=== PATIENT | female | born 1985 | race Caucasian/White ===

== ENCOUNTER 2017-06-08 15:50 | Emergency (ER) | payer OTHER ==
[2017-06-08] MEDS ORDERED: IBUPROFEN 600 MG TABLET PO ONE (15:58)
--- NOTE | 2017-06-08 16:05 | ERNOTE ---
Upper Extremity HPI - General Extremities Pain Location: hand: right Time Seen by Provider: 06/08/17 15:52 Source: patient Exam Limitations: no limitations - Immun/Allergies/Home Medications Immunizations: IMMUNIZATION HX Immunizations Up to Date Yes History of Influenza Vaccine No Hx Pneumococcal Vaccination No Allergies/Adverse Reactions: Allergies Allergy/AdvReac Type Severity Reaction Status Date / Time No Known Allergies Allergy Verified 06/08/17 16:04 Home Medications: HOME MEDICATIONS ALPRAZolam [Xanax] 1 mg PO TID PRN 03/20/17 [Last Taken Unknown] - History of Present Illness Narrative: Patient was cleaning and opened a cabinet door and the fridge at the same time and got her right hand stuck between the two, denies any other injury, initial bleeding has stopped. Review of Systems - Review of Systems Constitutional: Absent: recent illness, weight loss ENT: Absent: nose congestion Respiratory: Absent: shortness of breath Cardiology: Absent: chest pain Gastrointestinal/Abdominal: Absent: nausea, vomiting, abdominal pain Genitourinary: Present: no symptoms reported Musculoskeletal: Present: See HPI Skin: Present: See HPI Neurological: Present: tingling - Patient's Past Medical History Patient History - Medical: Anxiety, Bipolar, Depression Patient History - Cardiac/Respiratory: No pertinent hx Patient History - Cancer: No Hx of Cancer Patient History - Surgical Procedures: T & A Patient History - Other: None - Family History Mother Family History - Medical: Other Brother Family History - Medical: Other Father Family History - Medical: - Social History Living Situations: home Abuse History: No History of abuse Psych History: Hx of Anxiety, Hx of Depression, Hx of Bipolar Disorder, Current tx/ever been on anti-depressants or anti-anxiety meds Smoking Status: Current every day smoker - few cigarettes Alcohol Use: none Drug Use: none - Immunizations Immunizations Up to Date: Yes Hx Pneumococcal Vaccination: No History of Influenza Vaccine: No Physical Exam - Physical Exam General Appearance: Present: wd/wn, alert, mild distress, anxious Respiratory: Present: no respiratory distress, normal breath sounds, lungs clear Cardiovascular/Chest: Present: regular rate, rhythm Extremity Exam: Present: normal except - - right hand: abrasion/lac over dorsum of hand over 4th and 5th metacarpal(middle part about 1cm slightly gaping), mild swelling and very tender, no skin defect on palmar side, decreased sensation 4th and 5th finger (but also over wrist! patient very anxious), no flexion and extension deficit, numbness resolved later Neurological Exam: Present: alert, oriented Skin Exam: Present: normal color, warm/dry ED Progress - Vital Signs Patient's Vital Signs:: I have reviewed the patient's vital signs. - X-Ray X-Ray #1 X-Ray: hand - no bony injury Interpretation: Reviewed by me Procedures Right Hand Anesthesia: 1% Lidocaine, Local Length of Repair/Wound (cm): 1 Wound's Depth/Shape: into subcutaneous, linear Wound Explored: clean, to base, no foreign body Wound Intervention: irrigated w/saline Distal NVT: neuro/vasc intact Suture Size/Type: 4-0, nylon Number of Sutures: 1 Layer Closure: Simple Departure Clinical Impression: Contusion of hand, right Qualifiers: Encounter type: initial encounter Qualified Code(s): S60.221A - Contusion of right hand, initial encounter Laceration of hand Qualifiers: Encounter type: initial encounter Foreign body presence: without foreign body Laterality: right Qualified Code(s): S61.411A - Laceration without foreign body of right hand, initial encounter - Departure Disposition: Home self-care Condition: Good Instructions: Laceration Care, Adult, [id number] Additional Instructions: use ibuprofen and tylenol for pain have the sutures removed in 10 days, follow up with your doctor in [place]
[2017-06-08] MEDS ORDERED: IBUPROFEN 600 MG TABLET ONE (16:07)
[2017-06-08] MEDS ORDERED: ALPRAZolam 0.25 MG TABLET PO ONE (16:38)
[2017-06-08] MEDS ORDERED: ALPRAZolam 0.25 MG TABLET ONE (16:41)
[2017-06-08 17:01] VITALS: BP 108/73
== END 2017-06-08 16:58 | disposition home or self-care (01) ==
LOC: ER 15:50
PROC: 0JQJ0ZZ Repair Right Hand Subcutaneous Tissue and Fascia, Open Approach (ICD-10-PCS; principal; 2017-06-08)
DX: S61.411A Laceration without foreign body of right hand, initial encounter (principal); S60.221A Contusion of right hand, initial encounter; F17.210 Nicotine dependence, cigarettes, uncomplicated; F41.9 Anxiety disorder, unspecified; W23.0XXA Caught, crushed, jammed, or pinched between moving objects, initial encounter; Y92.009 Unspecified place in unspecified non-institutional (private) residence as the place of occurrence of the external cause